=== PATIENT | female | born 1960 | race Caucasian/White ===

== ENCOUNTER 2018-05-26 08:59 | Day surgery (SDC) | payer MEDICARE, OTHER ==
[~2018-05-26 08:59] MED LIST: DEXAMETHASONE SOD PHOS 4 MG/ML VIAL ONE; FENTANYL 250MCG/5ML VIAL ONE; HYDROmorphone HCL/PF 2 MG/ML DISP.SYRIN ONE; LACTATED RINGERS 1,000 ML IV.SOLN IV ONE; LIDOCAINE HCL/PF 2% 100 MG/5 ML VIAL IJ ONE; MIDAZOLAM HCL 2 MG/2 ML VIAL ONE; ONDANSETRON HCL/PF 4 MG/ 2ML VIAL ONE; PROPOFOL 200 MG/20 ML VIAL IV ONE; ROCURONIUM BROMIDE 10 MG/ML 5ML VIAL ONE; SEVOFLURANE 250 ML LIQUID IH ONE; SUGAMMADEX 200 mg/2mL 200 MG/2 ML VIAL IV ONE; ceFAZolin SODIUM 1 GM VIAL ONE; ePHEDrine SULFATE 50 MG/1 ML IVP ONE
== END 2018-05-26 09:00 ==
LOC: OPSURG 08:59
PROVIDERS: ATTEND Orthopaedic Surgery
DX: M48.062 Spinal stenosis, lumbar region with neurogenic claudication (principal)
CPT/HCPCS: 63030; J0690; J1100; J1170; J2001; J2250; J2405; J2704; J7120